=== PATIENT | male | born 1945 | race African-American/Black ===

== ENCOUNTER 2023-04-10 09:36 | Day surgery (SDC) | payer OTHER ==
[2023-04-10 10:39] VITALS: BMI 22.3
[2023-04-10 12:10] VITALS: RESP 20; TEMP 97.4
[2023-04-10 12:16] VITALS: BP 122/74; PULSE 60
== END 2023-04-10 12:05 | disposition home or self-care (01) ==
LOC: FASU-ENDO 09:36
PROVIDERS: ATTEND Internal Medicine Gastroenterology
PROC: 0DJD8ZZ Inspection of Lower Intestinal Tract, Via Natural or Artificial Opening Endoscopic (ICD-10-PCS; principal; 2023-04-10 11:19)
DX: Z12.11 Encounter for screening for malignant neoplasm of colon (principal); K57.30 Diverticulosis of large intestine without perforation or abscess without bleeding